=== PATIENT | male | born 1995 | race Caucasian/White ===

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

== ENCOUNTER 2018-01-15 11:47 | Emergency (ER) | payer BC ==
[2018-01-15 11:57] VITALS: BP 142/69
--- NOTE | 2018-01-15 12:19 | ER Document Report ---
ED General - General Chief Complaint: Shortness Of Breath Stated Complaint: CHEST PAIN Time Seen by Provider: 01/15/18 12:04 TRAVEL OUTSIDE OF THE [place] IN LAST 30 DAYS: No - HPI Notes: Patient is a 22-year-old male that presents to the emergency department for chief complaint of chest pain and shortness of breath. 45 minutes prior to arrival in the emergency room patient complaint of palpitations. After the palpitations have been going on for about 15-20 minutes he noticed a tightness in his chest. He states it is like a cramping substernally. He also had associated shortness of breath. He denied any perioral or hand paresthesias. Currently his symptoms are significantly improved. He states the palpitations and shortness of breath have resolved. He only has a mild aching in the middle of his chest. He has no family history of cardiac disease, sudden or pulmonary embolism. He denies any recent surgery, travel, hospitalizations, leg edema or leg cramping. 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 He denies any homicidal or suicidal thoughts. He denies any major life events or stressors that he is aware of. Past Medical History: Negative Past Surgical History: Negative Social History: Denies drugs alcohol and tobacco Family History: Reviewed and noncontributory for presenting illness Allergies: Reviewed, see documented allergy list. REVIEW OF SYSTEMS: CONSTITUTIONAL : No fever No chills No diaphoresis No recent illness EENT: No vision changes No congestion No sore throat CARDIOVASCULAR: chest pain palpitations RESPIRATORY: shortness of breath No cough No difficulty breathing GASTROINTESTINAL: No abdominal pain No nausea No vomiting No diarrhea GENITOURINARY: No dysuria No hematuria No difficulty urinating MUSCULOSKELETAL: No back pain No leg pain No arm pain SKIN: No rashes No lesions LYMPHATIC: No swollen, enlarged glands. NEUROLOGICAL: No lightheadedness No headache No weakness No paresthesias PSYCHIATRIC: No anxiety No depression PHYSICAL EXAMINATION: Vital signs reviewed, nursing noted reviewed. GENERAL: Well-appearing, well-nourished and in no acute distress. HEAD: Atraumatic, normocephalic. EYES: Eyes appear normal, extraocular movements intact, sclera anicteric, conjunctiva are normal. ENT: nares patent, oropharynx clear without exudates. Moist mucous membranes. NECK: Normal range of motion, supple without lymphadenopathy LUNGS: Breath sounds clear to auscultation bilaterally and equal. No wheezes rales or rhonchi. HEART: Regular rate and rhythm without murmurs ABDOMEN: Soft, nontender, normoactive bowel sounds. No rebound, guarding, or rigidity. No masses appreciated. EXTREMITIES: Nontender, good range of motion, no pitting or edema. NEUROLOGICAL: No focal neurological deficits. Moves all extremities spontaneously Motor and sensory grossly intact on exam. PSYCH: Anxious, tense SKIN: Warm, Dry, normal turgor, no rashes or lesions noted on exposed skin - Related Data Allergies/Adverse Reactions: amoxicillin Allergy (Verified 01/15/18 11:52) Past Medical History - Social History Smoking Status: Never Smoker Family History: Reviewed & Not Pertinent Pulmonary Medical History: Reports: Hx Asthma Renal/ Medical History: Denies: Hx Peritoneal Dialysis Musculoskeletal Medical History: Reports Hx Musculoskeletal Deformity - Chronic back pain, Reports Hx Musculoskeletal Trauma - Fractured left ankle and tendon and nerve damage to hand Skin Medical History: Reports Hx Cellulitis Traumatic Medical History: Reports: Hx Fractures - Left ankle Past Surgical History: Reports: Hx Neurologic Surgery - Tendon and nerve repair to left hand - Immunizations Immunizations up to date: Yes Hx Diphtheria, Pertussis, Tetanus Vaccination: Yes Physical Exam - Vital signs Vitals: Temp Pulse Resp BP Pulse Ox 98.4 F 92 16 142/69 H 99 01/15/18 11:54 01/15/18 11:54 01/15/18 11:54 01/15/18 11:54 01/15/18 11:54 Course - Re-evaluation Re-evalutation: 01/15/18 12:16 Vitals reviewed. Nursing notes reviewed. Patient appears anxious and is tensing up his upper body. His EKG shows normal sinus rhythm with no dysrhythmia or ischemic changes. Chest x-ray will be ordered to evaluate for pneumothorax, cardiomegaly and other acute intrathoracic process. He is PERC criteria negative and pulmonary embolism is not suspected. Patient has no risk factors for CAD or ischemic changes on EKG and I do not suspect ACS. 01/15/18 13:04 Patient's chest x-ray shows no acute process. He has remained hemodynamically stable. Patient was counseled on symptoms to return to the ER. He was discharged in stable condition. Chest X-Ray 01/15/18 12:14 IMPRESSION: Normal AP chest radiograph. - Vital Signs Vital signs: Temp Pulse Resp BP Pulse Ox 98.4 F 92 16 142/69 H 99 01/15/18 11:54 01/15/18 11:54 01/15/18 11:54 01/15/18 11:54 01/15/18 11:54 - EKG Interpretation by Me Additional EKG results interpreted by me: 01/15/18 12:17 Interpreted by myself Normal sinus rhythm, rate 90, normal axis, no ectopy, no WPW, no Wellens or Brugada Discharge - Discharge Clinical Impression: Shortness of breath, Palpitations Chest pain Qualifiers: Chest pain type: unspecified Qualified Code(s): R07.9 - Chest pain, unspecified Condition: Stable Disposition: HOME, SELF-CARE Instructions: Chest Pain of Unclear Cause ([facility]), Panic Attack ([facility]) Additional Instructions: Please return to the emergency department if you have any worsening, or concern of your symptoms. Please return to the emergency department if you develop chest pain, difficulty breathing, severe abdominal pain, or ongoing vomiting. Please follow-up with your primary care physician in 2-3 days and any other recommended physicians. If prescribed, take all medications as directed. If you have any questions or concerns do not hesitate to return the emergency department for evaluation. [] Referrals: RUTH KHAN MD [Primary Care Provider] - Follow up in 3-5 days
--- NOTE | 2018-01-15 12:50 | RADIOLOGY REPORT (SQ) ---
EXAM DESCRIPTION: CHEST SINGLE VIEW COMPLETED DATE/TIME: 01/15/2018 12:34 pm REASON FOR STUDY: shortness of breath COMPARISON: None. EXAM PARAMETERS: NUMBER OF VIEWS: One view. TECHNIQUE: Single frontal radiographic view of the chest acquired. RADIATION DOSE: NA LIMITATIONS: None. FINDINGS: LUNGS AND PLEURA: No opacities, masses or pneumothorax. No pleural effusion. MEDIASTINUM AND HILAR STRUCTURES: No masses. Contour normal. HEART AND VASCULAR STRUCTURES: Heart normal in size. Normal vasculature. BONES: No acute findings. HARDWARE: None in the chest. OTHER: No other significant finding. IMPRESSION: Normal AP chest radiograph. TECHNICAL DOCUMENTATION: JOB ID: [id number] [employer]- All Rights Reserved Reading location - IP/workstation name: [email or web address]
--- NOTE | 2018-01-15 13:08 | EKG REPORT ---
SEVERITY:- ABNORMAL ECG - SINUS RHYTHM NONSPECIFIC INTRAVENTRICULAR CONDUCTION DELAY : Confirmed by: Leah Smalls MD 15-Jan-2018 13:07:32
== END 2018-01-15 13:20 | disposition home or self-care (01) ==
LOC: ER 11:47
DX: R07.89 Other chest pain (principal); R00.2 Palpitations; J45.909 Unspecified asthma, uncomplicated; Z88.0 Allergy status to penicillin
CPT/HCPCS: 71045; 93005; 93010; 99285